=== PATIENT | male | born 1995 ===

== ENCOUNTER 2017-06-21 10:55 | Emergency (ER) | payer OTHER ==
[2017-06-21 11:26] VITALS: BP 164/74
[2017-06-21] MEDS ORDERED: cefTRIAXone VIAL(*) 250 MG VIAL IM ONE (11:44)
[2017-06-21] MEDS ORDERED: Azithromycin TAB* 250 MG PO ONE (11:45)
--- NOTE | 2017-06-21 11:47 | UC ---
Complaint Male HPI - HPI Summary HPI Summary: Pt presents with concern for possible exposure to STD infection. Pt states that he had sexual intercourse with female partner last night, unknown to him, and without a condom. Pt states that he was under the influence of alcohol. He is requesting STD testing but is asymptomatic. Pt denies any symptoms at time of exam. Denies known history of STD. - History of Current Complaint Chief Complaint: UCSTDScreening Stated Complaint: PERSONAL Time Seen by Provider: 06/21/17 11:39 Hx Obtained From: Patient Severity Currently: None Pain Intensity: 0 Location: None Associated Signs And Symptoms: Positive: Negative - Risk Factors Testicular Torsion: Negative - Allergies/Home Medications Allergies/Adverse Reactions: Allergies Allergy/AdvReac Type Severity Reaction Status Date / Time No Known Allergies Allergy Verified 06/21/17 11:26 Home Medications: Home Medications NK [No Home Medications Reported] 06/21/17 [History Confirmed 06/21/17] PMH/Surg Hx/FS Hx/Imm Hx Previously Healthy: Yes - Surgical History Surgical History: None - Family History Known Family History: Positive: Cardiac Disease - Social History Occupation: Student Lives: Dormitory/Roommates Alcohol Use: Weekly Substance Use Type: None Smoking Status (MU): Heavy Every Day Tobacco Smoker Have You Smoked in the Last Year: Yes Review of Systems Constitutional: Negative Skin: Negative Eyes: Negative ENT: Negative Respiratory: Negative Cardiovascular: Negative Gastrointestinal: Negative Genitourinary: Negative Motor: Negative Neurovascular: Negative Musculoskeletal: Negative Neurological: Negative Psychological: Negative Is Patient Immunocompromised?: No All Other Systems Reviewed And Are Negative: Yes Physical Exam Triage Information Reviewed: Yes Appearance: Well-Appearing Vital Signs: Initial Vital Signs Temp 100.2 F 06/21/17 11:17 Pulse 91 06/21/17 11:17 Resp 16 06/21/17 11:17 BP 164/74 06/21/17 11:17 Pulse Ox 99 06/21/17 11:17 Vital Signs Reviewed: Yes Eye Exam: Normal ENT Exam: Normal Dental Exam: Normal Respiratory: Positive: No respiratory distress Musculoskeletal Exam: Normal Neurological Exam: Normal Psychological Exam: Normal Skin Exam: Normal Complaint Male Course/Dx - Course Course Of Treatment: I discussed with the pt that if he were exposed to an STD that testing today would not likely provide asccurate result to his disease status. Additionally, I disucssed with him that symptoms would not be present dependent on diseas for at leas t few days to few weeks after his possible exposure last night. I discusse with him the option of having prophylactic treatment of rocephin and Zithromax and he agreed to this and requested HIV testing. I also discussed with him safe sex practices and symptoms to watch for. - Differential Dx/Diagnosis Differential Diagnosis/HQI/PQRI: Urinary Tract Infection, Other - std exposure Provider Diagnoses: unsafe sex practice. STD exposure Discharge - Sign-Out/Discharge Documenting (check all that apply): Discharge/Admit/Transfer - Discharge Plan Condition: Stable Disposition: HOME Patient Education Materials: Sexually Transmitted Diseases (ED), Safe Sex (ED) Referrals: Non Staff,Doctor [Primary Care Provider] - - Billing Disposition and Condition Condition: STABLE Disposition: HOME
[2017-06-21] MEDS ORDERED: Lidocaine 1% MPF* 2 ML VIAL ONE (11:51)
== END 2017-06-21 12:23 | disposition home or self-care (01) ==
LOC: UCCORT 10:55
DX: Z20.2 Contact with and (suspected) exposure to infections with a predominantly sexual mode of transmission (principal); Z72.51 High risk heterosexual behavior; F17.210 Nicotine dependence, cigarettes, uncomplicated
CPT/HCPCS: 36415; 80074; 86592; 86703; 87491; 87591; 99201; A9270-GY; G0463; J0696